=== PATIENT | male | born 1955 | race Caucasian/White ===

== ENCOUNTER → 2019-07-18 | Outpatient (REF) | payer OTHER ==
[2019-07-18 12:46] LABS: CREATININE, URINE 81.3 MG/DL; MALB URINE SIEMENS 17.4 MG/L; MAU/CREAT RATIO 21.4 MCG/MG (0.0-30.0)
== END ==
LOC: M LAB REF 11:22
PROVIDERS: ATTEND Nurse Practitioner Family
DX: E11.9 Type 2 diabetes mellitus without complications (principal)

== ENCOUNTER → 2020-07-02 | Outpatient (REF) | payer OTHER, MEDICARE ==
[2020-07-02 18:51] LABS: CREATININE, URINE 43.2 MG/DL; MALB URINE SIEMENS < 5.0 MG/L; MAU/CREAT RATIO 11.5 MCG/MG (0.0-30.0)
== END ==
LOC: M LAB REF 17:07
PROVIDERS: ATTEND Nurse Practitioner Family
DX: E11.9 Type 2 diabetes mellitus without complications (principal)